=== PATIENT | female | born 2000 | race Caucasian/White ===

== ENCOUNTER 2025-03-04 04:36 | Inpatient (IN) | payer MEDICAID, SELFPAY ==
[2025-03-04] VITALS (37 sets, daily range): BP systolic 99–132; BP diastolic 51–87; PULSE 62–106; RESP 15–20; TEMP 36.1–36.6; O2SAT 94–100; BMI 25.4
[2025-03-04 04:31] LABS: ROM Internal Control Test YES-OK TO RESULT pt. (Internal QC)
[2025-03-04 04:32] LABS: ROM Patient Test POSITIVE (Negative); Record Kit Lot#, ROM+ K3358
[2025-03-04 05:15] LABS: Absolute Lymphocyte Count 1.62 X10^3/uL (0.83-4.51); Basophil# 0.04 X10^3/uL; Basophil% 0.2 % (0-1); Eosinophil# 0.01 X10^3/uL; Hematocrit 37.4 % (37-47); Hemoglobin 13.3 g/dL (12.0-15.0); Lymphocyte # 1.62 X10^3/ul (0.83-4.51); Lymphocyte % 7.9 % (19-41); Mean Corp Hgb Conc 35.6 g/dL (32-36); Mean Corpuscular Hgb 32.4 pg (27.0-32.0); Mean Platelet Vol. 9.8 fl (6.2-12.0); Monocyte# 0.79 X10^3/uL; Monocyte% 3.8 % (0-10); NRBC Flagged by Analyzer 0 % (0-5); Neutrophil # 17.96 X10^3/uL (2.7-7.7); Neutrophil % 87.2 % (47-70); Platelet Count 194 K/mm3 (150-450); RBC Distribution Width CV 12.5 % (11.6-14.6); RBC Distribution Width SD 41.1 fl (35.1-43.9); Red Blood Count 4.11 M/mm3 (4.2-5.4); White Blood Count 20.6 K/mm3 (4.4-11.0)
[2025-03-04] MEDS: Lactated Ringers 1,000 ML 999 ML IV (05:19)
[2025-03-04 05:41] LABS: Syphilis Antibodies Nonreactive (Nonreactive)
[2025-03-04] MEDS: fentaNYL-bupivacaine (epidural) 100 ML BAG EPIDURAL (06:15)
[2025-03-04] MEDS: Lactated Ringers 1,000 ML 200 ML IV ×2 (06:18→09:17)
--- NOTE | 2025-03-04 08:51 | HP.PCM.OB_ITS ---
HPI - General General Date of Admission: 03/04/25 HPI Narrative MARIA KIRAN, is a 25 F who presents with ctxs and LOF. Maternal Data Information ZORAIDA Calculator Estimated Delivery Date Method Current WG Current Estimate 03/09/25 Manual 39w 2d PFSH PFS Medical History no medical history Home Medications ?Medication ?Instructions ?Recorded ?Last Taken ?Type docosahexaenoic acid 200 mg 200 mg PO DAILY 03/04/25 0 03/03/25 08:00 History capsule ( DHA) Allergy/AdvReac Type Severity Reaction Status Date / Time No Known Allergies Allergy Verified 03/04/25 03:59 Social History Smoking Status: Never smoker History Elective abortions Hx Para 0 Spontaneous abortions Hx # Term Pregnancies Ectopic pregnancies Hx # Pregnancies Multiple births # of living children NST FHR Rate Baby A Baseline: 135 Variability:: Moderate Accelerations:: 15 x 15 Decelerations:: None Uterine Activity:: Q 2-3 minutes Vital Signs Vital Signs Vital Signs: 03/04/25 03:54 03/04/25 03:54 03/04/25 03:54 Temperature Temperature Source Temporal Pulse Rate 72 Respiratory Rate Blood Pressure 116/66 BP Systolic 116 BP Diastolic 66 Pulse Ox 03/04/25 03:54 03/04/25 03:54 03/04/25 03:54 Temperature 97.7 F L Temperature Source Pulse Rate 76 Respiratory Rate 16 Blood Pressure BP Systolic BP Diastolic Pulse Ox 03/04/25 03:54 03/04/25 05:07 03/04/25 05:07 Temperature Temperature Source Temporal Pulse Rate Respiratory Rate 16 Blood Pressure BP Systolic BP Diastolic Pulse Ox 98 03/04/25 05:07 03/04/25 05:08 03/04/25 05:08 Temperature 97.0 F L Temperature Source Pulse Rate 103 H Respiratory Rate Blood Pressure 122/58 H BP Systolic 122 BP Diastolic 58 Pulse Ox 03/04/25 05:59 03/04/25 05:59 03/04/25 06:04 Temperature Temperature Source Pulse Rate 68 77 Respiratory Rate Blood Pressure BP Systolic BP Diastolic Pulse Ox 100 03/04/25 06:04 03/04/25 06:09 03/04/25 06:09 Temperature Temperature Source Pulse Rate 72 Respiratory Rate Blood Pressure BP Systolic BP Diastolic Pulse Ox 100 100 03/04/25 06:10 03/04/25 06:10 03/04/25 06:10 Temperature Temperature Source Pulse Rate 71 Respiratory Rate 16 Blood Pressure 113/58 L BP Systolic 113 BP Diastolic 58 Pulse Ox 03/04/25 06:14 03/04/25 06:14 03/04/25 06:19 Temperature Temperature Source Pulse Rate 76 Respiratory Rate Blood Pressure 113/64 BP Systolic 113 BP Diastolic 64 Pulse Ox 100 03/04/25 06:19 03/04/25 06:19 03/04/25 06:19 Temperature Temperature Source Pulse Rate 74 78 Respiratory Rate 17 Blood Pressure BP Systolic BP Diastolic Pulse Ox 03/04/25 06:19 03/04/25 06:24 03/04/25 06:24 Temperature Temperature Source Pulse Rate 71 Respiratory Rate Blood Pressure 109/62 BP Systolic 109 BP Diastolic 62 Pulse Ox 100 03/04/25 06:24 03/04/25 06:24 03/04/25 06:24 Temperature Temperature Source Pulse Rate 72 Respiratory Rate 17 Blood Pressure BP Systolic BP Diastolic Pulse Ox 100 03/04/25 06:29 03/04/25 06:29 03/04/25 06:29 Temperature Temperature Source Pulse Rate 71 Respiratory Rate 16 Blood Pressure 116/65 BP Systolic 116 BP Diastolic 65 Pulse Ox 03/04/25 06:29 03/04/25 06:29 03/04/25 06:34 Temperature Temperature Source Pulse Rate 82 Respiratory Rate Blood Pressure 112/63 BP Systolic 112 BP Diastolic 63 Pulse Ox 100 03/04/25 06:34 03/04/25 06:34 03/04/25 06:34 Temperature Temperature Source Pulse Rate 68 73 Respiratory Rate 15 Blood Pressure BP Systolic BP Diastolic Pulse Ox 03/04/25 06:34 03/04/25 06:39 03/04/25 06:39 Temperature Temperature Source Pulse Rate 75 Respiratory Rate Blood Pressure 102/55 L BP Systolic 102 BP Diastolic 55 Pulse Ox 100 03/04/25 06:39 03/04/25 06:39 03/04/25 06:39 Temperature Temperature Source Pulse Rate 74 Respiratory Rate 16 Blood Pressure BP Systolic BP Diastolic Pulse Ox 99 03/04/25 07:32 03/04/25 07:32 03/04/25 07:32 Temperature Temperature Source Tympanic Pulse Rate 74 Respiratory Rate Blood Pressure 99/51 L BP Systolic 99 BP Diastolic 51 Pulse Ox 03/04/25 07:32 03/04/25 07:32 03/04/25 07:32 Temperature 97.0 F L Temperature Source Pulse Rate Respiratory Rate 20 H Blood Pressure BP Systolic BP Diastolic Pulse Ox 100 03/04/25 08:04 03/04/25 08:04 03/04/25 08:05 Temperature Temperature Source Pulse Rate 62 Respiratory Rate Blood Pressure 120/57 L BP Systolic 120 BP Diastolic 57 Pulse Ox 100 03/04/25 08:05 03/04/25 08:09 03/04/25 08:09 Temperature Temperature Source Pulse Rate 68 73 Respiratory Rate Blood Pressure BP Systolic BP Diastolic Pulse Ox 100 03/04/25 08:14 03/04/25 08:14 03/04/25 08:19 Temperature Temperature Source Pulse Rate 77 66 Respiratory Rate Blood Pressure BP Systolic BP Diastolic Pulse Ox 100 03/04/25 08:19 03/04/25 08:24 03/04/25 08:24 Temperature Temperature Source Pulse Rate 65 Respiratory Rate Blood Pressure BP Systolic BP Diastolic Pulse Ox 98 99 03/04/25 08:29 03/04/25 08:29 Temperature Temperature Source Pulse Rate 77 Respiratory Rate Blood Pressure BP Systolic BP Diastolic Pulse Ox 99 Weight Weight: 148 lb Body Mass Index (BMI) 25.4 Physical Exam Const alert, oriented x3 and no apparent distress Chest inspection of chest normal GI soft to palpation, non-tender and non-distended Inspection: gravid external exam normal Narrative: cvx - 6/100/0, AROM blood tinged fluid Labs Labs Labs: Blood Type O POSITIVE Antibody Screen NEGATIVE Hct 37.4 % (37-47) Hgb 13.3 g/dL (12.0-15.0) Syphilis Total Ab Nonreactive (Nonreactive) Assessment & Plan (1) with 39 completed weeks gestation: COMMENT: PLAN: Plan Admit to L&D Expectant management GBS negative Pain - epidural EFW - less than 4500g and patient with adequate pelvis Routine care
[2025-03-04] MEDS: Oxytocin 15 Units/NS 250ml 15 UNITS/250 ML IV.SOLN 334 UNITS IV (11:09)
[2025-03-04] MEDS: Lidocaine 1% (20 ml mdv) 20 ML Vial INFILT (11:21)
--- NOTE | 2025-03-04 11:25 | OB.VAGDELI_ITS ---
Maternal Data Information ZORAIDA Calculator Estimated Delivery Date Method Current WG Current Estimate 03/09/25 Manual 39w 2d Vaginal Delivery Maternal Presentation Maternal Presentation: Active Labor Vaginal Delivery Information Procedure Performed: Spontaneous Vaginal Delivery Surgeon/Practitioner: Maximiliano Monet Date of Procedure: 03/04/25 Pre-Procedure Diagnosis: Labor Post-Procedure Diagnosis: Labor Type of anesthesia: Epidural Estimated Blood Loss: 200ml Findings Description of procedure: Called to room as patient precipitously delivered. 3VC clamped and cut in delayed fashion. Placenta delivered with gentle traction and good uterine tone obtained. Presentation: Vertex Amniotic Membrane Rupture Type: Artificial Amniotic Fluid Description: Clear and Bloody Placental Delivery Description: Expressed Placenta Disposition: [facility] Cord Vessel Description: 3 Vessels Cord Entanglement: None A Gender: Female (1 minute): 8 (5 minute): 9 Delayed Cord Clamping: Yes Superintendent Pressure oil exploration engineer: No Post Vaginal Deli Medications given after delivery: IV Pitocin Episiotomy Description: None Laceration: 1st degree (vaginal - repaired with 3-0 vicryl) Complication Complications: No
[2025-03-04] MEDS: Oxytocin 15 Units/NS 250ml 15 UNITS/250 ML IV.SOLN 83 UNITS IV (11:58)
[2025-03-04] MEDS: Benzocaine/Lanolin/Aloe Vera 85 GM Spray 1 SPRAY TOPICAL (13:30)
[2025-03-05] VITALS (9 sets, daily range): BP systolic 91–112; BP diastolic 51–68; PULSE 70–90; RESP 16; TEMP 35.8–36.6; O2SAT 96–98
[2025-03-05] MEDS: Acetaminophen 500 MG Tablet 1000 MG PO (05:13)
--- NOTE | 2025-03-05 08:15 | PCM.PN.OB ---
Subjective Subjective Doing well. Ambulating and voiding without difficulty. Mild lochia. Breast feeding. Objective Data Objective Data Vital Signs: Vital Signs Temp Pulse Resp BP Pulse Ox O2 Del Method 96.9 F L 90 16 105/68 98 Room Air 03/05/25 03:36 03/05/25 08:06 03/05/25 03:36 03/05/25 08:06 03/05/25 08:06 03/05/25 03:36 Oxygen Delivery Method Room Air Weight: 67.132 kg Body Mass Index (BMI) 25.4 Intake & Output: Intake and Output for Last 24 Hours 03/03/25 03/04/25 03/05/25 23:59 23:59 23:59 Intake Total 2869.47 / 2869.47 Output Total 200 / 200 Balance 2669.47 / 2669.47 Lab / Micro Data 03/04/25 04:45 ROS Constitutional Constitutional: Denies headache(s) Cardiovascular Cardiovascular: Denies chest pain or dyspnea Gastrointestinal Gastrointestinal: Denies nausea or vomiting Genitourinary Genitourinary: Denies dysuria Physical Exam Const alert, oriented x3 and no apparent distress General Appearance: cooperative and comfortable Eyes PERRL and EOMs intact bilaterally Resp normal respiratory effort GI soft to palpation and non-tender Uterus Palpation: uterus fundus firm ( below umbilicus) Extremity normal to inspection and full ROM Neuro oriented x3 and CN's II-XII intact bilaterally Psych mental status grossly normal Assessment & Plan (1) (spontaneous vaginal delivery): PLAN: Plan Discharge home
--- NOTE | 2025-03-05 08:15 | PCM.DC.SUM ---
Providers Date of Admission: 03/04/25 Date of Discharge: 03/05/25 Primary Care Physician: Delfino Cramer MD Reason For Visit: VAGINAL DELIVERY Diagnosis Discharge Diagnosis (1) with 39 completed weeks gestation: Status: Acute Code(s): Z3A.39 - 39 weeks gestation of Medications at Discharge Home Medications docosahexaenoic acid 200 mg capsule ( DHA) 200 mg PO DAILY 03/04/25 Hospital Course Operations None Procedures None Summary of Care Provided Minutes Spent on Discharge: 20 Hospital Course: Admitted in Active labor, . Breast feeding Physical Exam Const alert and no apparent distress Narrative: Fundus firm, below umbilicus. Weight / BMI Weight Weight: 67.132 kg Body Mass Index (BMI) 25.4 ABG / Lab / Microbiology Data 03/04/25 04:45 D/C Instructions May resume sexual activity in: 6 weeks DC O2, CPAP, BIPAP Needs Home O2 Discharge instructions: No Please Follow Up With: Serina Lazcano MD When: Follow up with our office in 1-2 and 6 weeks or as needed. [phone] Meaningful Use Info Meaningful Use Meaningful Use Diagnoses (Choose all that apply): None applicable Ischemic Stroke Statin Dosing Therapy Reference: STATIN DOSE THERAPY REFERENCE: * Patients > 75 years receive moderate or high dose statin therapy. * Patients 75 years or YOUNGER should receive HIGH intensity statin dose unless contraindicated. You will be required to document reason for non-treatment if statin daily dose does not meet guidelines. HIGH DOSE STATIN THERAPY DAILY Atorvastatin > than or = to 40 mg Rosuvastatin > than or = to 20 mg Amlodipine + Atorvastatin > than or = to 2.5/40 mg Ezetimibe + Simvastatin 10/80 mg Simvastatin 80mg Discharge Plan Admission Admit Date/Time: 03/04/25 04:36 Primary Reason for Your Visit: Attending Provider: Maximiliano Monet Primary Care Provider: Delfino Cramer Discharge Orders/Prescriptions Prescriptions: Continued DHA 200 mg capsule 200 mg PO DAILY Referrals / Follow Up: Delfino Cramer MD [Primary Care Provider] - Disposition Disposition (needs filled in before D/C Order can be placed): Home, Self Care
== END 2025-03-05 13:45 | disposition home or self-care (01) | DRG 560 ==
LOC: WP 04:47
PROVIDERS: Obstetrics & Gynecology; Admitting Provider Obstetrics & Gynecology; PCP Family Medicine; Referring Provider Obstetrics & Gynecology; Visit Provider Obstetrics & Gynecology
DX: O62.3 Precipitate labor (principal); Z37.0 Single live birth; O70.0 First degree perineal laceration during delivery; Z3A.39 39 weeks gestation of pregnancy
CPT/HCPCS: 59050; 84112; 85025; 86780; 86850; 86900; 86901; 99221; G0378